=== PATIENT | male | born 1975 | race Caucasian/White ===

== ENCOUNTER 2016-07-24 07:56 | Outpatient (RCR) | payer BC | END 2016-09-10 08:00 | disposition home or self-care (01) | LOC: PT 07:56 | DX: M77.11 Lateral epicondylitis, right elbow (principal) ==

== ENCOUNTER 2024-02-17 23:09 | Emergency (ER) | payer BC ==
[2024-02-17] MEDS ORDERED: TIZANIDINE HYDRO4 MG PO (23:27)
[2024-02-17] MEDS ORDERED: LISINOPRIL20 MG PO (23:27)
[2024-02-17] MEDS ORDERED: FLUTICASON0.05 MG/Ac NS (23:27)
[2024-02-17 23:55] VITALS: BP 149/94
== END 2024-02-17 23:55 | disposition home or self-care (01) ==
LOC: ED 23:09
DX: S61.012A Laceration without foreign body of left thumb without damage to nail, initial encounter (principal); Z23 Encounter for immunization; W26.0XXA Contact with knife, initial encounter
CPT/HCPCS: 90715